=== PATIENT | female | born 1990 | race African-American/Black ===

== ENCOUNTER 2024-04-21 14:32 | Emergency (ER) | payer MEDICAID ==
[~2024-04-21] VITALS: Ht 162.6 cm; Wt 122.0 kg
[2024-04-21] MEDS ORDERED: ALBU6.7H9 INH (16:06)
[2024-04-21] MEDS ORDERED: AZITHROMYCIN 250 MG TABLET ONE (16:22)
[2024-04-21] MEDS: AZITHROMYCIN 250 MG TABLET PO ONE (16:27)
[2024-04-21] MEDS ORDERED: AZITHROMYCIN 1,000 MG in IV D5W 250 ML IV ONE (16:30)
[2024-04-21 17:40] VITALS: BP 140/90; TEMP 97.9; O2SAT 98
== END 2024-04-21 17:41 | disposition home or self-care (01) ==
LOC: ER 14:35
DX: J02.9 Acute pharyngitis, unspecified (principal); J45.901 Unspecified asthma with (acute) exacerbation; F17.200 Nicotine dependence, unspecified, uncomplicated; I10 Essential (primary) hypertension; Z59.00 Homelessness unspecified
CPT/HCPCS: 86403-TC; 87070-TC